=== PATIENT | female | born 1940 | race Caucasian/White ===

== ENCOUNTER 2020-05-04 15:39 | Emergency (ER) | payer MEDICARE, OTHER, SELFPAY ==
[2020-05-04 15:56] VITALS: BP 175/86; PULSE 94; RESP 16; TEMP 37.1; O2SAT 97; BMI 21.9
--- NOTE | 2020-05-04 15:59 | DI.RAD.S_ITS ---
PROCEDURE: XR WRIST LT MIN 3V INDICATIONS: Fall TECHNIQUE: 4 views of the wrist were acquired. COMPARISON: [facility], CR, XR FOREARM LT 2V, 05/04/2020, 16:03. FINDINGS: Bones: There is an impacted distal radius fracture, with comminution and intra-articular involvement. There is dorsal angulation of the fracture fragments. Remote appearing fracture fragments are seen distal to the ulnar styloid. There may also be an acute, superimposed ulnar styloid fracture. There is advanced degenerative change seen of the 1st carpometacarpal joint. Milder degenerative changes are seen elsewhere. Scaphoid view: Suboptimal. Soft tissues: Mild soft tissue swelling is seen. IMPRESSION: Impacted, dorsally angulated fracture of the distal radius, with intra-articular involvement. Fracture fragments are seen distal to the ulna, with a potential acute ulnar styloid fracture present. If it would be helpful for clinical management decision making, please consider a dedicated wrist CT for further evaluation. Focal 1st carpometacarpal joint degenerative change. Dictated by: Yasmani Rogers M.D. on 05/04/2020 at 15:19 Approved by: Yasmani Rogers M.D. on 05/04/2020 at 15:21
--- NOTE | 2020-05-04 15:59 | DI.RAD.S_ITS ---
PROCEDURE: XR FOREARM LT 2V INDICATIONS: Fall TECHNIQUE: 2 views of the forearm were acquired. COMPARISON: [facility], CR, XR WRIST LT MIN 3V, 05/04/2020, 16:03. FINDINGS: Bones: There is an impacted, comminuted fracture of the distal radius, with a mild degree of intra-articular involvement seen. There is dorsal angulation of the fracture fragments. Fracture fragments are seen distal to the ulna, which are attributed to remote ulnar styloid fracture fragments. Degenerative changes are seen throughout, which are most prominent involving the 1st carpometacarpal joint. Milder degenerative changes are seen elsewhere. No fracture of the radial ulnar shaft or the proximal radius or ulna can be seen on these images. Soft tissues: No suspicious soft tissue calcifications or masses. IMPRESSION: Impacted, dorsally angulated distal radius fracture, with intra-articular involvement. No more proximal fracture can be seen. Dictated by: Yasmani Rogers M.D. on 05/04/2020 at 15:17 Approved by: Yasmani Rogers M.D. on 05/04/2020 at 15:19
--- NOTE | 2020-05-04 17:52 | ED.UPPEXIN ---
HPI - Extremity Injury (Upper) General Chief Complaint: Extremity Injury, Upper Stated Complaint: fall in snow, left arm injury Time Seen by Provider: 05/04/20 15:45 Source: patient and EMS Mode of arrival: EMS Limitations: no limitations History of Present Illness HPI narrative: 79-year-old female nonsmoker with noncontributory medical history presents with a chief complaint of a slip on the ice on an outstretched left wrist with pain. She denies any head neck or back pain. She denies shoulder or elbow pain. She has pain in her left wrist, worse with motion and improves with rest. She denies any numbness, tingling or weakness. She denies any provoking symptoms of her fall such as dizziness, weakness or lightheadedness. She states she purely slipped on the ground. She was evaluated by EMS on [facility] and then transported here. complaint: injury to: left Onset (ago): hour(s) Other Extremity Injury: Left: wrist Other injuries: none Handedness: right Place: home Severity: moderate Relieving factors: rest Exacerbating factors: movement of extremity Context: fall and direct blow Associated symptoms: denies other symptoms Treatments prior to arrival: splint Related Data Home Medications Medication Instructions Recorded Confirmed temazepam 15 mg PO HSP PRN #0 10/29/15 vitamins A,C,Q-ocgt-qzaifi 1 tab PO BID #0 06/02/16 [PreserVision AREDS] Previous Rx's Medication Instructions Recorded acetaminophen 1 tab PO Q4HP PRN #60 tab 01/16/17 aspirin 81 mg PO BID #60 tab 01/16/17 hydroxyzine pamoate 25 - 50 mg PO Q4HP PRN #60 cap 01/16/17 meloxicam [Mobic] 7.5 mg PO QDAY #30 tab 01/16/17 oxycodone 5 - 10 mg PO Q3HP PRN #60 tab 01/16/17 hydrocodone-acetaminophen 1 tab PO Q4-6H PRN #20 tab 05/04/20 Allergies Allergy/AdvReac Type Severity Reaction Status Date / Time Sulfa (Sulfonamide Allergy Mild NAUSEA Verified 05/04/20 18:06 Antibiotics) [SULFA (SULFONAMIDE ANTIBIOTICS)] Review of Systems Constitutional Constitutional: Denies chills, Denies fatigue, Denies fever(s), Denies frequent falls, Denies lethargy and Denies weakness Eyes Eyes: Denies change in vision, Denies eye discharge, Denies irritation and Denies loss of vision ENT Ears, Nose, Mouth, and Throat: Denies change in voice, Denies dizziness, Denies neck pain, Denies sore throat and Denies throat swelling Cardiovascular Cardiovascular: Denies chest pain, Denies irregular heart rhythm, Denies lightheadedness, Denies palpitations, Denies dyspnea, Denies dyspnea on exertion and Denies orthopnea Respiratory Respiratory: Denies cough, Denies dyspnea, Denies dyspnea on exertion and Denies wheezing Gastrointestinal Gastrointestinal: Denies abdominal pain, Denies change in bowel habits, Denies diarrhea, Denies nausea and Denies vomiting Musculoskeletal Musculoskeletal: Reports deformity, Reports arthralgias, Reports joint swelling, Denies neck pain and Denies numbness Integumentary/Breasts Skin/Breast: Denies pruritus, Denies erythema, Denies rash and Denies wounds Neurologic Neurologic: Denies behavioral changes, Denies confusion, Denies dizziness, Denies frequent falls, Denies loss of vision, Denies numbness and Denies weakness Psychiatric Psychiatric: Denies anxiety, Denies behavioral changes, Denies confusion, Denies depression, Denies homicidal ideation and Denies suicidal ideation Endocrine Endocrine: Denies fatigue, Denies flushing and Denies palpitations Hematologic/Lymphatic Hematologic/Lymphatic: Denies easy bruising Allergic/Immunologic Allergic/Immunologic: Denies urticaria, Denies throat swelling and Denies wheezing Patient History Social History Smoking Status: Never smoker Smoking Status: Never smoker alcohol intake frequency: 3 or more drinks per day Substance Use Type: does not use Exam Narrative Exam Narrative: GENERAL: [79] year old patient appears stated age. Well-nourished, well-developed patient, in mild distress. GCS 15 HEAD: Atraumatic. Normocephalic. EYES: Pupils equal round and reactive. Extraocular motions intact. No scleral icterus. No injection or drainage. ENT: Nose without bleeding, purulent drainage. Throat without erythema, tonsillar hypertrophy or exudate. Airway patent. NECK: Trachea midline. Non tender CARDIOVASCULAR: Regular rate and rhythm without murmurs, gallops, or rubs. RESPIRATORY: Clear to auscultation. Breath sounds equal bilaterally. No wheezes, rales, or rhonchi. GASTROINTESTINAL: Abdomen soft, non-tender, nondistended. EXTREMITIES: Left upper extremity in splint from EMS, pain in left wrist with some swelling, closed, isolated a neurovascularly intact BACK: Nontender without deformity or crepitance. No flank tenderness. NEURO: AOx3. SKIN: No rash or erythema of visible areas Initial Vital Signs Initial Vital Signs: Vital Signs Temperature 98.7 F 05/04/20 15:56 Pulse Rate 94 H 05/04/20 15:56 Respiratory Rate 16 05/04/20 15:56 Blood Pressure 175/86 H 05/04/20 15:56 Pulse Oximetry 97 05/04/20 15:56 Procedures Orthopedic Splinting/Casting Injury #1: Side: left Upper Extremity Injury Location: wrist Upper Extremity Immobilizer: sling/shoulder immobilizer and sugar tong splint Post splinting neuro exam: intact Post splinting vascular exam: intact Placed by: Nursing Course Course Course Narrative: Discussed with on-call Orthopedics. Not likely to improve with reduction, I sure this opinion. Recommend sugar tongue, sling and follow-up. Orders Ordered: Discontinued Medications Hydrocodone Bitart/Acetaminophen (Hydrocodone/Acet 5/325 Prepack) 1 bottle MISC SEEINSTR ONE Stop: 05/04/20 17:01 Last Admin: 05/04/20 18:08 Dose: 1 bottle Documented by: JEAN Vital Signs Vital signs: Vital Signs - 8 hr 05/04/20 15:56 Temperature 98.7 F Pulse Rate 94 H Respiratory Rate 16 Blood Pressure 175/86 H Pulse Oximetry 97 MDM - Extremity Injury (Upper) Imaging Data Extremity x-ray #1: Attestation: I personally reviewed and interpreted this imaging study as follows: My Impression: distal radius fx Radiologist's Impression: Marion Morris 79 F [address] [address]FEhl ReportSigned Patient: Arthur ZamoraMarion [facility]#: [id number]: 1940cct:[id number]/Sex: 79 / FDate of Service: 05/04/20Loc: EDAccession Number: [id number] Procedure: XR wrist LT min 3V Ordering Provider: Steve Dutta D.O. PROCEDURE: XR WRIST LT MIN 3V INDICATIONS: Fall TECHNIQUE: 4 views of the wrist were acquired. COMPARISON: [facility], CR, XR FOREARM LT 2V, 05/04/2020, 16:03. FINDINGS: Bones: There is an impacted distal radius fracture, with comminution and intra-articular involvement. There is dorsal angulation of the fracture fragments. Remote appearing fracture fragments are seen distal to the ulnar styloid. There may also be an acute, superimposed ulnar styloid fracture. There is advanced degenerative change seen of the 1st carpometacarpal joint. Milder degenerative changes are seen elsewhere. Scaphoid view: Suboptimal. Soft tissues: Mild soft tissue swelling is seen. IMPRESSION: Impacted, dorsally angulated fracture of the distal radius, with intra-articular involvement. Fracture fragments are seen distal to the ulna, with a potential acute ulnar styloid fracture present. If it would be helpful for clinical management decision making, please consider a dedicated wrist CT for further evaluation. Focal 1st carpometacarpal joint degenerative change. Dictated by: Yasmani Rogers M.D. on 05/04/2020 at 15:19 Approved by: Yasmani Rogers M.D. on 05/04/2020 at 15:21 Discharge Plan Departure Patient Disposition: Home Clinical Impression: Fracture of wrist Qualifiers: Encounter type: initial encounter Fracture type: closed Laterality: left Qualified Code(s): S62.102A - Fracture of unspecified carpal bone, left wrist, initial encounter for closed fracture Instructions: DI for Wrist Fracture Activity Restrictions/Additional Instructions: *You have been diagnosed with [fall with minimally displaced left distal radius fracture] *What to do: *Take medications as directed *Follow up with [facility] in 2-3 days, call for an appointment. Let them know you were seen in the Emergency Department and that we ask that you be seen in follow up *Return to ER if you should have any new, worsening or concerning symptoms, such as [increasing pain, numbness, tingling, weakness or other bothersome symptoms You have been prescribed narcotic medications. While on these medications you cannot drive or operate heavy machinery. Additionally you cannot sign legal documents or perform any duties such as this. 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 Please understand that we cannot provide further refills of narcotics or controlled substances through the ED and your pain management will need to be through your Primary Care Provider] Prescriptions: New hydrocodone-acetaminophen 5-325 mg tablet 1 tab PO Q4-6H PRN (Reason: pain) Qty: 20 RF: 0 No Action temazepam 15 MG capsule 15 mg PO HSP PRNQty: 0 RF: 0 vitamins A,C,N-zmnn-bfwezl [PreserVision AREDS] 1 EACH capsule 1 tab PO BID Qty: 0 RF: 0 acetaminophen 325 MG tablet 1 tab PO Q4HP PRNQty: 60 RF: 0 aspirin 81 MG tablet,delayed release (DR/EC) 81 mg PO BID Qty: 60 RF: 0 meloxicam [Mobic] 7.5 MG tablet 7.5 mg PO QDAY Qty: 30 RF: 0 oxycodone 5 MG tablet 5 - 10 mg PO Q3HP PRNQty: 60 RF: 0 hydroxyzine pamoate 25 MG capsule 25 - 50 mg PO Q4HP PRNQty: 60 RF: 0 Referrals: Ramiro Gandhi MD [Physician] - Nirmal Cuadra MD [Primary Care Provider] -
[2020-05-04] MEDS: HYDROCODONE/ACET 5/325 PREPACK 1 BOTTLE MISC (18:08)
[2020-05-04 18:15] VITALS: BP 136/72; PULSE 70; RESP 18; O2SAT 99
== END 2020-05-04 18:17 | disposition home or self-care (01) ==
PROVIDERS: Emergency Provider Emergency Medicine; Family Provider Family Medicine; PCP Family Medicine
DX: S62.102A Fracture of unspecified carpal bone, left wrist, initial encounter for closed fracture (principal); W00.0XXA Fall on same level due to ice and snow, initial encounter
CPT/HCPCS: 73090; 73110; 99283

== ENCOUNTER → 2023-01-25 11:58 | Outpatient (CLI) | payer MEDICARE, OTHER, SELFPAY ==
--- NOTE | 2023-01-25 | DI.MRI.S_ITS ---
PROCEDURE: MR HEAD/BRAIN WO CON INDICATIONS: Headache TECHNIQUE: Non-contrast axial T1 spin echo, axial T2 fast spin echo, sagittal and axial FLAIR, coronal T2 fast spin echo, axial gradient echo, axial diffusion and ADC through the brain. COMPARISON: None. FINDINGS: Image quality: Excellent. CSF spaces: Ventricles appear symmetric in size and shape. Basal cisterns are patent. No extra-axial fluid collections. Brain: No intracranial bleeds or mass effects. There is cerebral volume loss for age. There are periventricular and deep white matter chronic small vessel ischemic changes. Brainstem appears normal. Diffusion-weighted images show no acute ischemic insults. No chronic ischemic insults. Normal intravascular flow voids are present. Skull and face: Calvarial bone marrow is normal in signal. Orbits are normal. Note is made of bilateral lens replacements. Sinuses: Sinuses and mastoids are clear. IMPRESSION: Brain MRI within normal limits for age, without a cause of headache identified. To the limits of this noncontrast study, no findings of masses or mass effect can be seen. No brain edema is seen. No hydrocephalus. Dictated by: Yasmani Rogers M.D. on 01/25/2023 at 15:38 Approved by: Yasmani Rogers M.D. on 01/25/2023 at 15:39
== END ==
PROVIDERS: Family Provider Family Medicine; PCP Family Medicine; Referring Provider Family Medicine; Visit Provider Family Medicine
DX: R51.9 Headache, unspecified (principal)
CPT/HCPCS: 70551

== ENCOUNTER 2023-10-04 09:48 | Day surgery (SDC) | payer MEDICARE, OTHER, SELFPAY ==
--- NOTE | 2023-10-04 | PATH_ITS ---
[facility] Accession Number: [id number] No. of containers..04 Tissue . 01 Material submitted: . PART A: gastrointestinal site - ANTRUM PART B: gastrointestinal site - GASTRIC ULCER: PROXIMAL BODY PART C: esophagus, E-G Junction - GEJ BIOPSY PART D: esophagus - MID ESOPHAGUS . 01 Diagnosis: A. GASTRIC ANTRUM, BIOPSY: Gastric antral mucosa with no diagnostic abnormality. No evidence of Helicobacter organisms on H/E stain. Negative for intestinal metaplasia. Negative for dysplasia or malignancy. . B. STOMACH, PROXIMAL BODY, BIOPSY: Gastric body mucosa with features of reactive gastropathy. Negative for Helicobacter organisms by immunohistochemistry. Negative for intestinal metaplasia. Negative for dysplasia or malignancy. . C. GASTROESOPHAGEAL JUNCTION, BIOPSY: Squamocolumnar junctional mucosa with mild chronic inflammation. Negative for specialized intestinal metaplasia on alcian blue stain. Negative for dysplasia or malignancy. . D. MID ESOPHAGUS, BIOPSY: Squamous epithelium with mild reactive features of reflux esophagitis. Intraepithelial eosinophils are not increased. Negative for fungal organisms on PAS stain. Negative for dysplasia or malignancy. [facility] 10/07/2023 1440 Local . 01 Electronically signed: . Diego Cyr MD, PhD, Pathologist NPI- [id number] . 01 Gross description: . Part A: ANTRUM: Received in formalin is 1 fragment(s) of carty, soft tissue measuring 0.3 x 0.3 x 0.2 cm submitted entirely in 1 cassette(s) Part B: GASTRIC ULCER: PROXIMAL BODY: Received in formalin are 2 fragment(s) of carty, soft tissue measuring 0.1 x 0.1 x 0.1 cm to 0.2 x 0.2 x 0.1 cm submitted entirely in 1 cassette(s) Part C: GEJ BIOPSY: Received in formalin is 1 fragment(s) of carty, soft tissue measuring 0.3 x 0.2 x 0.2 cm submitted entirely in 1 cassette(s) Part D: MID ESOPHAGUS: Received in formalin is 1 fragment(s) of carty, soft tissue measuring 0.3 x 0.3 x 0.1 cm submitted entirely in 1 cassette(s) /GARRETT 10/05/2023 0048 Local . 01 Microscopic: . B. An immunohistochemical stain was performed to evaluate for Helicobacter organisms and is negative. The control stain showed appropriate reactivity. . C. An alcian blue stain is negative for goblet cells. A control stain shows appropriate reactivity. . D. A PAS stain is negative for fungal organisms. A control stain shows appropriate reactivity. . * This test was developed and its performance characteristics determined by [employer]. It has not been cleared or approved by the U.S. Food and Drug Administration. The FDA has determined that such clearance or approval is not necessary. This test is used for clinical purposes. It should not be regarded as investigational or for research. . 01 Pathologist provided ICD-10: K29.60, K20.80, K21.9 . 01 CPT . 359827, 999109, 039997, 385005, T99120, 235057, 957371 Specimen Comment: A courtesy copy of this report has been sent to [phone] Performed at: [address] [id number] MD Tyler Collins MD Phone: [phone]
[2023-10-04 10:36] VITALS: BP 150/82; PULSE 73; RESP 16; TEMP 37; O2SAT 98
[2023-10-04] MEDS: LACTATED RINGERS 1,000 ML 42 ML IV (10:47)
--- NOTE | 2023-10-04 10:56 | PM.HP.1 ---
History of Present Illness History of Present Illness Date Patient Seen: 10/04/23 Time Patient Seen: 10:57 Chief complaint: EGD w/poss bx Narrative: 83-year-old here for EGD. I reviewed the recent note by Louie Mejía in GI clinic. No significant changes. She estimates symptoms of pyrosis about twice per month or so. He has not had any weight loss or melena. REPLACED BY [facility] Social History Smoking Status: Never smoker alcohol intake: current Meds Home Medications and Allergies Home Medications Medication Instructions Recorded Confirmed Type temazepam 15 mg capsule 15 mg PO HSP PRN Insomnia ##0 10/29/15 10/04/23 History vitamins A,C,X-vobn-tkorep 4,296 1 tab PO BID ##0 06/02/16 10/04/23 History mcg-226 mg-90 mg capsule (PreserVision AREDS) acetaminophen 325 mg tablet 1 tab PO Q4HP PRN #60 tabs 01/16/17 10/04/23 Rx propranolol 10 mg tablet 10 mg PO BID 10/04/23 10/04/23 History Allergies Allergy/AdvReac Type Severity Reaction Status Date / Time Sulfa (Sulfonamide Allergy Mild NAUSEA Verified 10/04/23 10:31 Antibiotics) [SULFA (SULFONAMIDE ANTIBIOTICS)] Review of Systems Review of Systems ROS: Yes All systems reviewed with the patient and are negative except as otherwise documented Exam Vital Signs (past 8 hours): - 10/04/23 10:36 Temperature 98.6 F Pulse Rate 73 Respiratory Rate 16 Blood Pressure 150/82 H Pulse Oximetry 98 Oxygen Delivery Method Room Air Oxygen Delivery Method Room Air Const General: cooperative HENMT Head: normal to inspection Eyes General: appearance normal, both eyes and all related structures Neck Neck: normal visual inspection Chest Chest: normal inspection of the chest Resp Effort & Inspection: normal respiratory effort Cardio Rate: regular rate GI Inspection: normal to inspection Skin General: no rashes or lesions noted Neuro General: patient alert and patient awake Extrem General: normal to inspection and no pedal edema Psych Appearance: grossly normal Assessment & Plan Assessment & Plan narrative: 83-year-old female with approximately 1 year of intermittent dysphagia to solids with a family history of gastric cancer. EGD with possible dilatation is pursued today. Time-Based Coding :: [TOTAL MINUTES] spent with patient and on the chart (including review of chart, obtaining history, exam, reviewing outside data, placing orders, documenting exam and treatment plan, and counseling patient) on [DATE].
--- NOTE | 2023-10-04 10:58 | PM.PREOP ---
Pre-operative Note Interval Note History & Physical reviewed/Exam performed by Physician: Yes Changes to H&P: No ASA Class (for procedural sedation): II
--- NOTE | 2023-10-04 11:59 | PM.OP.EGD ---
Operative Date/Time/Diagnoses Date of procedure: 10/04/23 Time of procedure: 11:59 Pre-op diagnosis: Dysphagia Post-op diagnosis: same Procedure & Clinicians Study performed: EGD with biopsies and balloon dilatation Same procedure as scheduled: Yes Indications: Dysphagia Surgeon: Galdino Fermin Procedure Notes SCOAP/Timeout: Done Procedure in detail: After the risks and benefits were explained, written and verbal informed consent was obtained. The patient was brought into the procedure room and placed into the left lateral decubitus position. Please see anesthesia notes for sedation details. The scope was introduced into the mouth through the bite block and advanced under direct visualization to the 2nd portion of the duodenum. The scope was slowly withdrawn carefully examining the mucosa for any defects or lesions. Retroflexed views were accomplished in the stomach. The stomach was decompressed, the scope was then removed from the patient who tolerated the procedure well. Sedation minutes: 22 Complications: none Impression: 1. Duodenal: This was normal from the bulb through to the 2nd portion. 2. Stomach: The patient had some scattered erosive features in the distal body and antrum. Antral biopsies were therefore taken for exclusion of H pylori or other histopathology. Retroflexed views of the LES disclosed a Hill valve grade 4 hiatal hernia. There was a superficial eroded versus ulcerated section on the neck of the hiatal hernia measuring perhaps 15 mm in greatest dimension. This was in the location where Kasi's erosions are seen but not classic for the appearance of Kasi's erosions. I therefore took biopsies from this eroded focus. 3. Esophagus: The squamocolumnar junction correlated with the top of the gastric folds. GEJ was at approximately 35 cm from the incisors. The diaphragmatic pinchcock was at about 38 cm from the incisors. There was no evidence of any active esophagitis. There was a subtle Schatzki's ring evident and I therefore elected to perform graded balloon dilatation using the 15-18 mm balloon. This was sequentially dilated up to 18 mm. There was an appropriate rent in the mucosa consistent with the dilatation effect. After the dilatation was accomplished I pursued couple of biopsies at the level of the GE junction/Schatzki's ring where the mucosa was slightly irregular in appearance on the cardia side. In the midesophagus there were some subtle circumferential rings intermittently visible and I therefore additionally took midesophageal biopsies to exclude EOE. Endoscopic diagnosis 1. Moderate-sized hiatal hernia 2. Erosive and superficially ulcerative gastritis 3. Subtle nonobstructing Schatzki's ring dilated to 18 mm 4. Irregular GE junction-biopsied 5. Subtle midesophageal circumferential rings biopsied to exclude EOE. Post-procedure Plan for aftercare: 1. Await histology. 2. Continue with anti-reflux therapy as needed. 4. Follow up GI clinic to review response to therapy. Disposition: PACU
[2023-10-04 12:00] VITALS: BP 132/82; PULSE 73; RESP 16; TEMP 36.4; O2SAT 95
[2023-10-04 12:05] VITALS: BP 134/80; PULSE 64; RESP 18; O2SAT 97
[2023-10-04 12:10] VITALS: BP 157/83; PULSE 62; RESP 21; O2SAT 94
[2023-10-04 12:15] VITALS: BP 169/92; PULSE 64; RESP 19; TEMP 36.2; O2SAT 93
== END 2023-10-04 12:40 | disposition home or self-care (01) ==
PROVIDERS: Family Provider Family Medicine; PCP Family Medicine; Referring Provider Internal Medicine Gastroenterology; Visit Provider Internal Medicine Gastroenterology
PROC: 0DJ08ZZ Inspection of Upper Intestinal Tract, Via Natural or Artificial Opening Endoscopic (ICD-10-PCS; CPT 43235; principal; 2023-10-04 11:00)
DX: R13.10 Dysphagia, unspecified (principal); K44.9 Diaphragmatic hernia without obstruction or gangrene; K22.2 Esophageal obstruction; K31.9 Disease of stomach and duodenum, unspecified; K29.50 Unspecified chronic gastritis without bleeding
CPT/HCPCS: 43249; 43239; J2704